=== PATIENT | male | born 1965 | race American Indian/Alaskan Native ===

== ENCOUNTER 2016-11-01 23:30 | Inpatient (IN) | payer MEDICAID ==
--- NOTE | 2016-11-02 00:01 | Emergency Department Report ---
ED Seizure HPI - General Stated Complaint: SEIZURE Time Seen by Provider: 11/01/16 23:36 Source: family, EMS Mode of arrival: Stretcher Limitations: Altered Mental Status (ed caveat due to obtunded state) - History of Present Illness Initial Comments: This is a 51-year-old gentleman with a long-standing history of seizure disorder. 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 He has been on several different medications for his seizure currently is on Keppra twice a day. Girlfriend states he has been compliant with his Keppra. She states he's been drinking heavily the last 2 days spell. His also been using marijuana today. He was today and relatively short succession. Each one lasts less than 2 minutes. All full body movement. Patient was admitted to the hospital one month ago for similar episode where he is having status seizures this also involved alcohol. He was switched at that time to Keppra again he has been compliant with his Keppra. Complaint: seizure Onset/Timin -: minutes(s) Description of Episode: loss of consciousness, tonic-clonic movement Duration of Episode: 2 -: minutes(s) Seizure History: known seizure disorder, compliant with medication Place: home Possible Precipitating Event: drug use, other (alcohol) Treatments Prior to Arrival: none - Related Data Previous Rx's Medication Instructions Recorded Last Taken Type levETIRAcetam [Keppra TAB] 750 mg PO BID #60 tablet 09/30/16 Unknown Rx Allergies Allergy/AdvReac Type Severity Reaction Status Date / Time No Known Allergies Allergy Verified 11/01/16 23:32 ED Review of Systems ROS: Stated complaint: SEIZURE Other details as noted in HPI Comment: Unobtainable due to pts medical conditions ED Past Medical Hx - Past Medical History Hx Hypertension: Yes Hx Seizures: Yes - Surgical History Additional Surgical History: Brain surgery after head injury resulting in "crushed skull" - Social History Smoking Status: Unknown if ever smoked - Medications Home Medications: Home Medications Medication Instructions Recorded Confirmed Last Taken Type levETIRAcetam [Keppra TAB] 750 mg PO BID #60 tablet 09/30/16 11/01/16 Unknown Rx ED Physical Exam - General Limitations: Altered Mental Status General appearance: obtunded - Head Head exam: Present: other (old well healed wound on frontal scalp) - Eye Eye exam: Present: PERRL, other (mild scleral injection). Absent: scleral icterus - ENT ENT exam: Present: normal orophraynx (no oral lesions), mucous membranes moist, other (some oral secretions) - Neck Neck exam: Present: normal inspection. Absent: lymphadenopathy, thyromegaly - Respiratory Respiratory exam: Present: other (coarse bilat with extrathoracic transmitted sounds) - Cardiovascular Cardiovascular Exam: Present: regular rate, normal rhythm. Absent: systolic murmur, diastolic murmur - GI/Abdominal GI/Abdominal exam: Present: soft. Absent: tenderness - Extremities Exam Extremities exam: Absent: tenderness, pedal edema, joint swelling - Back Exam Back exam: Absent: CVA tenderness (R), rash noted - Neurological Exam Neurological exam: Present: other (obtunded. Does arouse to stimuli. Does move all extremities spontaneously.) - Skin Skin exam: Present: warm, dry ED Course Vital Signs 11/01/16 11/01/16 11/02/16 23:33 23:56 00:30 Temperature 98.6 F Pulse Rate 129 H 116 H Respiratory 16 18 Rate Blood Pressure 115/42 Blood Pressure 142/78 [Left] O2 Sat by Pulse 93 99 99 Oximetry 11/02/16 01:30 Temperature Pulse Rate 112 H Respiratory 18 Rate Blood Pressure Blood Pressure 118/83 [Left] O2 Sat by Pulse 99 Oximetry - Reevaluation(s) Reevaluation #1: 11/02/16 06:45 Patient quite somnolent most of his time here. I did give Ativan 2 mg IV for seizure prophylaxis. According to significant other patient has been compliant on his Keppra. I elected not to load more Keppra. He does seem quite clear to me that the patient is lowered his seizure threshold due to his alcohol intake as well as his drug use today. I can't cure stupidity. Labs are noted demonstrating stress response as well as some mild renal insufficiency. I don' t have suspicion based on today's evaluation to suspect some type of new intracranial pathology. The significant other again reports witnessing the seizures no report of trauma as indicated. I feel that the patient is appropriate for floor bed for continued monitoring of this is necessary due to the status component of his seizures with 4 seizures and relatively rapid succession. Dr. Greco contacted for admission. ED Medical Decision Making - Lab Data Result diagrams: 11/02/16 00:50 11/02/16 00:50 Critical care attestation.: If time is entered above; I have spent that time in minutes in the direct care of this critically ill patient, excluding procedure time. ED Disposition Clinical Impression: Status epilepticus Disposition: OP ADMITTED IP TO THIS HOSP Is pt being admited?: Yes Does the pt Need Aspirin: No Condition: Stable Time of Disposition: 01:45
[2016-11-02] MEDS ORDERED: NACL 0.9% 1000 ML 1,000 ML IV ONE (00:10)
[2016-11-02] MEDS ORDERED: ATIVAN IV ONE (00:10)
[2016-11-02 01:37] LABS: Basophils % (Auto) 0.2 % (0.0-1.8); Eosinophils % (Auto) 0.1 % (0.0-4.3); Hematocrit 49.7 % (35.5-45.6); Hemoglobin 15.8 gm/dl (11.8-15.2); Mean Corpuscular HGB Conc 32 % (32-34); Mean Corpuscular Hemoglobin 27 pg (28-32); Mean Corpuscular Volume 87 fl (84-94); Platelet Count 175 K/mm3 (140-440); Red Blood Count 5.74 M/mm3 (3.65-5.03); Red Cell Distribution Width 15.3 % (13.2-15.2); White Blood Count 16.5 K/mm3 (4.5-11.0)
[2016-11-02 01:59] LABS: Alanine Aminotransferase 23 units/L (7-56); Albumin 4.9 g/dL (3.9-5); Albumin/Globulin Ratio 1.4 %; Alkaline Phosphatase 151 units/L (35-129); BUN/Creatinine Ratio 8.23; Bilirubin,Total < 0.2 mg/dL (0.1-1.2); Blood Urea Nitrogen 14 mg/dL (9-20); Calcium 10.3 mg/dL (8.4-10.2); Carbon Dioxide 14 mmol/L (22-30); Chloride 96.1 mmol/L (98-107); Glucose 102 mg/dL (75-100); Potassium 5.7 mmol/L (3.6-5.0); Sodium 142 mmol/L (137-145); Total Protein 8.3 g/dL (6.3-8.2)
[2016-11-02 02:15] LABS: Anion Gap 38 mmol/L
[2016-11-02] MEDS ORDERED: NACL 0.9% 1000 ML IV SCH ×2 (03:00→04:00)
[2016-11-02] MEDS ORDERED: ATIVAN IV PRN ×2 (03:16)
[2016-11-02] MEDS: KEPPRA 750 MG in D5W 100 ML IV SCH ×2 (03:36→15:15)
[2016-11-02] MEDS: NACL 0.9% 1000 ML 1,000 ML IV SCH ×2 (03:53→13:28)
[2016-11-02 05:15] LABS: Urine Drugs of Abuse Note Disclamer
--- NOTE | 2016-11-02 11:34 | History and Physical Report ---
History of Present Illness Date of examination: 11/02/16 Date of admission: 11/02/16 01:46 Chief complaint: Seizures x4 since AM History of present illness: This is a 51-year-old gentleman with a long-standing history of seizure disorder. 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 He has been on several different medications for his seizure currently is on Keppra twice a day. Girlfriend states he has been compliant with his Keppra. She states he's been drinking heavily the last 2 days spell. His also been using marijuana today. Each one lasts less than 2 minutes. All full body movement. Patient was admitted to the hospital one month ago for similar episode where he is having status seizures this also involved alcohol. He was switched at that time to Keppra again he has been compliant with his Keppra. Patient is postictal and confused. Past History Past Medical History: hypertension, seizures Past Surgical History: Other (Brain surgery after trauma) Social history: single, smoking, alcohol abuse, other (Marijuana and cocaine abuse) Family history: CAD, hypertension Medications and Allergies Allergies Allergy/AdvReac Type Severity Reaction Status Date / Time No Known Allergies Allergy Verified 11/01/16 23:32 Home Medications Medication Instructions Recorded Confirmed Last Taken Type levETIRAcetam [Keppra TAB] 750 mg PO BID #60 tablet 09/30/16 11/01/16 Unknown Rx Active Meds: Active Medications Levetiracetam 750 mg/ Dextrose 107.5 mls @ 400 mls/hr IV Q12H [facility] Last Admin: 11/02/16 03:36 Dose: 400 mls/hr Sodium Chloride (Nacl 0.9% 1000 Ml) 1,000 mls @ 100 mls/hr IV DIRECT [facility] Last Admin: 11/02/16 03:53 Dose: 100 mls/hr Influenza Virus Vaccine Quadrival (Fluarix Quad [id number](36 Mos+)) 60 mcg IM .ONCE ONE Stop: 11/03/16 12:01 Lorazepam (Ativan) 4 mg IV Q1HR PRN PRN Reason: CIWA-Ar 16-25 Lorazepam (Ativan) 2 mg IV Q1HR PRN PRN Reason: CIWA-Ar 8-15 Review of Systems All systems: negative Neurological: seizures Psychiatric: disorientation, confusion, irritability Exam - Constitutional Vitals: Temp Pulse Resp BP Pulse Ox 98.5 F 97 H 20 145/84 95 11/02/16 10:16 11/02/16 10:16 11/02/16 10:16 11/02/16 10:16 11/02/16 10:16 General appearance: Present: no acute distress, well-nourished - EENT Eyes: Present: PERRL ENT: hearing intact, clear oral mucosa - Neck Neck: Present: supple, normal ROM - Respiratory Respiratory effort: normal Respiratory: bilateral: CTA - Cardiovascular Heart Sounds: Present: S1 & S2. Absent: rub, click - Extremities Extremities: pulses symmetrical, No edema Peripheral Pulses: within normal limits - Abdominal General gastrointestinal: Present: soft, non-tender, non-distended, normal bowel sounds Male genitourinary: Present: normal - Integumentary Integumentary: Present: clear, warm, dry - Musculoskeletal Musculoskeletal: gait normal, strength equal bilaterally - Psychiatric Psychiatric: appropriate mood/affect, intact judgment & insight - Neurologic Neurologic: CNII-XII intact, moves all extremities Results - Labs CBC & Chem 7: 11/02/16 00:50 11/02/16 00:50 Labs: Short CBC 11/02/16 Range/Units 00:50 WBC 16.5 H (4.5-11.0) K/mm3 Hgb 15.8 H (11.8-15.2) gm/dl Hct 49.7 H (35.5-45.6) % Plt Count 175 (140-440) K/mm3 BMP 11/02/16 00:50 Sodium 142 Potassium 5.7 H Chloride 96.1 L Carbon Dioxide 14 L BUN 14 Creatinine 1.7 H Glucose 102 H Calcium 10.3 H Liver Function 11/02/16 Range/Units 00:50 Total Bilirubin < 0.2 (0.1-1.2) mg/dL AST 30 (5-40) units/L ALT 23 (7-56) units/L Alkaline Phosphatase 151 H (35-129) units/L Albumin 4.9 (3.9-5) g/dL Assessment and Plan - Patient Problems (1) Status epilepticus Current Visit: Yes Status: Acute Plan to address problem: Cont IV Keppra 750 bid Compliance -advised (2) AA (alcohol abuse) Current Visit: No Status: Chronic Plan to address problem: CIWA protocol initiated To pediatric genetic counselor (3) HTN (hypertension) Current Visit: No Status: Chronic Qualifiers: Hypertension type: essential hypertension Qualified Code(s): I10 - Essential (primary) hypertension Plan to address problem: Cont antihypertensives (4) Post-ictal state Current Visit: No Status: Acute Plan to address problem: IV FLUIDS FOR NOW (5) Hyperkalemia Current Visit: Yes Status: Acute Plan to address problem: kAYEXALATE GIVEN (6) EtOH dependence Current Visit: Yes Status: Acute Qualifiers: Substance use status: alcohol-induced anxiety disorder Complication of substance-induced condition: C Qualified Code(s): 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 (9) DVT prophylaxis Current Visit: Yes Status: Acute Plan to address problem: On lovenox sq
[2016-11-02] MEDS ORDERED: SODIUM BICARBONATE IV ONE ×2 (11:56→13:00)
[2016-11-02] MEDS ORDERED: KIONEX PO ONE (11:56)
[2016-11-02] MEDS ORDERED: ROCEPHIN 2,000 MG in NACL 0.9% 50 ML IV SCH (12:00)
[2016-11-02] MEDS ORDERED: NON-FORMULARY (Levetiracetam [Keppra Tab] 750 MG) PO SCH (12:00)
[2016-11-02 13:08] LABS: Basophils % (Auto) 0.3 % (0.0-1.8); Eosinophils % (Auto) 0.2 % (0.0-4.3); Hematocrit 41.9 % (35.5-45.6); Hemoglobin 13.6 gm/dl (11.8-15.2); Mean Corpuscular HGB Conc 33 % (32-34); Mean Corpuscular Hemoglobin 28 pg (28-32); Mean Corpuscular Volume 85 fl (84-94); Platelet Count 137 K/mm3 (140-440); Red Blood Count 4.93 M/mm3 (3.65-5.03); Red Cell Distribution Width 15.1 % (13.2-15.2); White Blood Count 7.5 K/mm3 (4.5-11.0)
[2016-11-02 13:23] LABS: BUN/Creatinine Ratio 11.81; Blood Urea Nitrogen 13 mg/dL (9-20); Calcium 8.8 mg/dL (8.4-10.2); Carbon Dioxide 25 mmol/L (22-30); Glucose 176 mg/dL (75-100); Sodium 141 mmol/L (137-145)
[2016-11-02 13:25] LABS: Anion Gap 18 mmol/L
[2016-11-02] MEDS: ROCEPHIN/NS 2 GM/100 ML 2 GM/100 ML BAG IV SCH (14:10)
[2016-11-02] MEDS ORDERED: KEPPRA PO SCH (22:00)
[2016-11-03] MEDS: NACL 0.9% 1000 ML 1,000 ML IV SCH ×2 (00:23→20:17)
[2016-11-03] MEDS: KEPPRA 750 MG in D5W 100 ML IV SCH ×2 (02:20→16:42)
--- NOTE | 2016-11-03 08:45 | Admit Criteria Form ---
Admission Criteria Documentation: SEIZURE Clinical Indications for Admission to Inpatient Care (Place 'X' for any and all applicable criteria): Admission is indicated for seizure and ANY ONE of the following(1)(2)(3)(4)(5): [X]I. Inpatient admission required rather than observation care (Also use Seizure: Observation Care Criteria as appropriate) because of ANY ONE of the following: [X]a) Altered mental status that is severe or persistent [ ]b) New focal neurologic deficit that is severe or persistent [ ]c) Metabolic disorder (eg, hypoglycemia, hyponatremia) that is severe or persistent [X]d) Recurrent seizure []e) Outpatient antiseizure regimen cannot be established (eg, patient cannot tolerate medication, initiation requires inpatient care) []f) Need for ongoing intravenous infusion of antiseizure medication [ ]g) Cardiac arrhythmias of immediate concern [ ]h) Cerebral bleeding, hydrocephalus, or vasospasm monitoring (14) [ ]i) Increased intracranial pressure or cerebral edema monitoring (15) [X]j) Other treatment or monitoring requiring inpatient admission [X]II. Status epilepticus [A] or repetitive seizures not controlled with emergent treatment (6)(8) [ ]III. Brain disorder (eg, tumor, edema, and hydrocephalus) that requiring monitoring or intervention available only at inpatient level of care. [ ]IV. Brain insult (eg, severe trauma, stroke, drug toxicity, or withdrawal) that requires monitoring or intervention available only at inpatient level of care (10)(11) Extended stay beyond goal length of stay may be needed for (22) [ ]a) Complications of status epilepticus [ ]b) Refractory status epilepticus [ ]c) Etiology-specific therapy for conditions such as [employer] infection, head injury,eclampsia, severe metabolic abnormalities, and brain tumor [ ]d) Residual neurologic damage, [ ]e) Initiation of significant change to anticonvulsant treatment [ ]f) Older patients (65 years or older) [ ]g) Patient requiring intubation (eg, to protect airway) The original [facility] [employer] content created by [facility] [employer] has been revised. The portions of the content which have been revised are identified through the use of italic text or in bold, and [facility] has neither reviewed nor approved the modified material. All other unmodified content is copyright [facility]. Please see references footnoted in the original [facility] edition 2016 Admission Criteria Met: Yes
[2016-11-03] MEDS ORDERED: FLUARIX QUAD 2016-2017(36 MOS+) IM ONE (12:00)
[2016-11-03] MEDS: ROCEPHIN/NS 2 GM/100 ML 2 GM/100 ML BAG IV SCH (14:08)
--- NOTE | 2016-11-03 14:40 | Progress Note ---
Assessment and Plan Assessment and plan: 1. Seizure disorder Known seizure disorder secondary to remote brain injury No seizure activity possible secondary to alcohol abuse/withdrawal as well as substance abuse, noncompliance with medications Received Ativan on admission and restarted on Keppra 2. Substance abuse UDS positive for cocaine and marijuana Supportive care Will need further counseling regarding importance of quitting 3. Alcohol abuse Placed on CIWA protocol Start thiamine and folate 4. Leukocytosis Likely stress reaction, within normal limits today Discontinue antibiotic 5. Thrombocytopenia Likely secondary to alcohol abuse Monitor 6. Hyperkalemia Medically treated, resolved 7. GI/DVT prophylaxis History Interval history: no seizures after admitted alert this morning Hospitalist Physical - Constitutional Vitals: Temp Pulse Resp BP Pulse Ox 98.7 F 76 18 132/91 98 11/03/16 08:05 11/03/16 08:05 11/03/16 08:05 11/03/16 08:05 11/02/16 22:52 General appearance: Present: no acute distress, well-nourished - EENT Eyes: Present: PERRL, EOM intact - Neck Neck: Present: supple, normal ROM. Absent: masses or JVD - Respiratory Respiratory effort: normal Respiratory: bilateral: CTA, negative: rales, rhonchi, wheezing - Cardiovascular Rhythm: regular Heart Sounds: Present: S1 & S2. Absent: systolic murmur - Extremities Extremities: no ischemia - Abdominal General gastrointestinal: soft, non-tender, non-distended, normal bowel sounds - Neurologic Neurologic: moves all extremities - Additional findings Additional findings: craniotomy scar Results - Labs CBC & Chem 7: 11/02/16 12:22 11/02/16 12:22 Labs: Laboratory Last Values WBC 7.5 K/mm3 (4.5-11.0) 11/02/16 12:22 RBC 4.93 M/mm3 (3.65-5.03) 11/02/16 12:22 Hgb 13.6 gm/dl (11.8-15.2) 11/02/16 12:22 Hct 41.9 % (35.5-45.6) D 11/02/16 12:22 MCV 85 fl (84-94) 11/02/16 12:22 MCH 28 pg (28-32) 11/02/16 12:22 MCHC 33 % (32-34) 11/02/16 12:22 RDW 15.1 % (13.2-15.2) 11/02/16 12:22 Plt Count 137 K/mm3 (140-440) L 11/02/16 12:22 Lymph % (Auto) 22.0 % (13.4-35.0) 11/02/16 12:22 [place] % (Auto) 10.2 % (0.0-7.3) H 11/02/16 12:22 Eos % (Auto) 0.2 % (0.0-4.3) 11/02/16 12:22 Baso % (Auto) 0.3 % (0.0-1.8) 11/02/16 12:22 Lymph # 1.7 K/mm3 (1.2-5.4) 11/02/16 12:22 [place] # 0.8 K/mm3 (0.0-0.8) 11/02/16 12:22 Eos # 0.0 K/mm3 (0.0-0.4) 11/02/16 12:22 Baso # 0.0 K/mm3 (0.0-0.1) 11/02/16 12:22 Seg Neutrophils % 67.3 % (40.0-70.0) 11/02/16 12:22 Seg Neutrophils # 5.1 K/mm3 (1.8-7.7) 11/02/16 12:22 Sodium 141 mmol/L (137-145) 11/02/16 12:22 Potassium 4.0 mmol/L (3.6-5.0) D 11/02/16 12:22 Chloride 102.0 mmol/L (98-107) 11/02/16 12:22 Carbon Dioxide 25 mmol/L (22-30) D 11/02/16 12:22 Anion Gap 18 mmol/L 11/02/16 12:22 BUN 13 mg/dL (9-20) 11/02/16 12:22 Creatinine 1.1 mg/dL (0.8-1.5) 11/02/16 12:22 Estimated GFR > 60 ml/min 11/02/16 12:22 BUN/Creatinine Ratio 11.81 % 11/02/16 12:22 Glucose 176 mg/dL (75-100) H 11/02/16 12:22 Calcium 8.8 mg/dL (8.4-10.2) 11/02/16 12:22 Total Bilirubin < 0.2 mg/dL (0.1-1.2) 11/02/16 00:50 AST 30 units/L (5-40) 11/02/16 00:50 ALT 23 units/L (7-56) 11/02/16 00:50 Alkaline Phosphatase 151 units/L (35-129) H 11/02/16 00:50 Total Protein 8.3 g/dL (6.3-8.2) H 11/02/16 00:50 Albumin 4.9 g/dL (3.9-5) 11/02/16 00:50 Albumin/Globulin Ratio 1.4 % 11/02/16 00:50 Urine Opiates Screen Presumptive negative 11/02/16 05:00 Urine Methadone Screen Presumptive negative 11/02/16 05:00 Ur Barbiturates Screen Presumptive negative 11/02/16 05:00 Ur Phencyclidine Scrn Presumptive negative 11/02/16 05:00 Ur Amphetamines Screen Presumptive negative 11/02/16 05:00 U Benzodiazepines Scrn Presumptive negative 11/02/16 05:00 Urine Cocaine Screen Presumptive positive 11/02/16 05:00 U Marijuana (THC) Screen Presumptive positive 11/02/16 05:00 Drugs of Abuse Note Disclamer 11/02/16 05:00 Plasma/Serum Alcohol 0.01 gm% (0-0.07) 11/02/16 00:50
[2016-11-04] MEDS ORDERED: APRESOLINE IV ONE ×2 (02:32→15:00)
[2016-11-04] MEDS: KEPPRA 750 MG in D5W 100 ML IV SCH ×2 (03:06→14:20)
[2016-11-04] MEDS: NACL 0.9% 1000 ML 1,000 ML IV SCH (06:25)
--- NOTE | 2016-11-04 11:52 | Discharge Summary ---
Providers - Providers Date of Admission: 11/02/16 01:46 Date of discharge: 11/04/16 Attending physician: WILLIAM MCDANIEL Primary care physician: [employer] Hospitalization Reason for admission: status epilepticus Condition: Stable Hospital course: This is a 51-year-old gentleman with a long-standing history of seizure disorder. 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 He has been on several different medications for his seizure currently is on Keppra twice a day. Girlfriend and the patient stated he has been compliant with his Keppra. She states he's been drinking heavily the last 2 days prior to admission. He has also been using marijuana today. Patient had a couple of generalized tonic-clonic seizures prior to admission. No new seizure activity since admission. There was some question of compliance with medications Keppra. Patient received Ativan on admission and was restarted on Keppra. UDS was positive for cocaine and marijuana. She was counseled with regards to sensation. Patient is also felt to have some alcohol abuse component and was placed initially on CIWA protocol. Patient is currently at baseline with no new complaints. Patient is felt to receive maximal hospital benefit and will be discharged home. Patient is to follow-up with his neurologist at the [facility]. Patient is to have no driving until further follow-up with his PCP or his neurologist. Dedicated discharge time 35 minutes. Disposition: DISCHARGED TO HOME OR SELFCARE - Discharge Diagnoses (1) Status epilepticus Status: Acute (2) Drug abuse and dependence Status: Chronic (3) Seizure Status: Acute (4) HTN (hypertension) Status: Chronic Qualifiers: Hypertension type: essential hypertension Qualified Code(s): I10 - Essential (primary) hypertension Core Measure Documentation - Palliative Care Palliative Care/ Comfort Measures: Not Applicable - Core Measures Any of the following diagnoses?: none Exam - Constitutional Vitals: Temp Pulse Resp BP Pulse Ox 98.1 F 77 20 160/106 97 11/04/16 08:00 11/04/16 08:00 11/04/16 08:00 11/04/16 08:00 11/04/16 08:00 General appearance: Present: no acute distress, well-nourished - EENT Eyes: Present: PERRL ENT: hearing intact, clear oral mucosa - Neck Neck: Present: supple, normal ROM - Respiratory Respiratory effort: normal Respiratory: bilateral: CTA - Cardiovascular Heart Sounds: Present: S1 & S2. Absent: rub, click - Extremities Extremities: pulses symmetrical, No edema Peripheral Pulses: within normal limits - Abdominal General gastrointestinal: Present: soft, non-tender, non-distended, normal bowel sounds Male genitourinary: Present: normal - Integumentary Integumentary: Present: clear, warm, dry - Musculoskeletal Musculoskeletal: gait normal, strength equal bilaterally - Psychiatric Psychiatric: appropriate mood/affect, intact judgment & insight - Neurologic Neurologic: CNII-XII intact, moves all extremities Plan Activity: no driving until cleared by PCP Weight Bearing Status: Full Weight Bearing Follow up with: PRIMARY CARE, [Primary Care Provider] - 3-5 Days Prescriptions: levETIRAcetam [Keppra TAB] 750 mg PO BID #60 tablet
[2016-11-04] MEDS: ROCEPHIN/NS 2 GM/100 ML 2 GM/100 ML BAG IV SCH (14:09)
[2016-11-04 16:01] VITALS: BP 170/81
--- NOTE | 2016-11-06 08:29 | Query- Renal Failure ---
Dear Date:_11/06/16 Middle [employer] Tutor/CDS:Simon/ Jordan Sargent Phone#:_[phone] Exercise your independent professional judgment when responding to query. Questions asked do not imply a particular answer is desired or expected. We greatly appreciate your clarification on this issue. Clinical Documentation States: 51 Y/O admitted on 11/02/16 with long history of seizure disorder, presents after episode of heavy drinking and marijuana use and a couple generalized tonic -clonic seizures. Clinical Findings Show: 11/02@00:50 2@12:22 Cr: 1.7 1.1 Please clarify if you mean: Acute Renal Failure with or due to: [ ] Tubular Necrosis [ ] Medullary Necrosis [x ] Vasomotor Nephropathy [ ] Shock Kidney [ ] Tubular Nephrosis [ ] Renal Tubular Stasis [ ] Cortical Necrosis [ ] Acute Renal Failure (unspecified) [ ] Lower Tubular Nephrosis [ ] Other: [ ] Not Applicable Present on Admission: [x ] Yes (Y) [ ] Clinically undeterminable (W) [ ] No (N) Please also document response in your Progress Notes and/or Discharge Summary and indicate if the condition was present on admission. MTDD
== END 2016-11-04 16:25 | disposition home or self-care (01) | DRG 100 ==
LOC: ED 23:30 → 3A 11-02 01:46
PROVIDERS: ADMIT Internal Medicine; ATTEND Hospitalist
PROC: HZ34ZZZ Individual Counseling for Substance Abuse Treatment, Interpersonal (ICD-10-PCS; principal; 2016-11-04)
DX: G40.901 Epilepsy, unspecified, not intractable, with status epilepticus (principal); N17.0 Acute kidney failure with tubular necrosis; F14.20 Cocaine dependence, uncomplicated; I10 Essential (primary) hypertension; E87.5 Hyperkalemia; F17.210 Nicotine dependence, cigarettes, uncomplicated; F10.20 Alcohol dependence, uncomplicated; D72.829 Elevated white blood cell count, unspecified; D69.6 Thrombocytopenia, unspecified; Z71.51 Drug abuse counseling and surveillance of drug abuser; Z87.820 Personal history of traumatic brain injury; Z79.899 Other long term (current) drug therapy; Z98.890 Other specified postprocedural states; Z91.14 Patient's other noncompliance with medication regimen; Z82.49 Family history of ischemic heart disease and other diseases of the circulatory system; F12.10 Cannabis abuse, uncomplicated
CPT/HCPCS: 36415; 80048; 80053; 80307; 80320; 85025; 90686; 96361; 96374; G0480; J0360; J0696; J1953; J2060; J7030